=== PATIENT | female | born 1995 | race American Indian/Alaskan Native ===

== ENCOUNTER 2019-06-20 05:52 | Observation (INO) | payer SELFPAY ==
--- NOTE | 2019-06-20 05:57 | EDM.PDOCBH ---
ED HPI GENERAL MEDICAL PROBLEM - General Chief Complaint: Drug or Alcohol Abuse Stated Complaint: EMS ARRIVAL Time Seen by Provider: 06/20/19 05:53 Source of Information: Reports: Patient, EMS History Limitations: Reports: Intoxication - History of Present Illness INITIAL COMMENTS - FREE TEXT/NARRATIVE: CC overdose HPI: This is a floridly intoxicated female who 45 minutes ago took an unknown number of ibuprofen 600s and approximately 10 Tylenol PMs in addition to copious alcohol in an attempt to kill herself. PMHX/PSHX: Pression Social History: Negative for tobacco, positive for alcohol, negative for street drugs or marijuana Family history: Hypertension ROS: see chart PE: Floridly intoxicated uncooperative patient VS afebrile vital signs stable General: No apparent distress Head: Atraumatic normocephalic no lumps bumps or bruises Eyes: EOMI PERRLA Ears: TMs intact no hemotympanum no signs of infection no mastoid tenderness Nose: No epistaxis nares patent no septal wall hematoma Throat: No pharyngeal erythema or exudate no tonsillar enlargement Neck: Supple, no cervical lymphadenopathy Chest wall: No point tenderness Heart: Regular rate and rhythm without murmur gallop or rub Lungs: Clear to auscultation and percussion without rales rhonchi or wheeze Abdomen: Soft nontender nondistended without guarding rigidity or rebound Neck: No spinal point tenderness full range of motion in all 6 directions Back: No spinal paraspinal or CVA tenderness Extremities: full rom through out. no effusions skin: Warm dry intact no rashes neurologic: . No focal motor or sensory deficits noted Psychiatric: patient denies suicidal intent MDM: Differential diagnosis: ED course: Diagnosis: Disposition: COURSE, BEHAVIORAL HEALTH COMP - Course Orders, Labs, Meds: Active Orders 24 hr Category Date Time Status EKG Documentation Completion [RC] STAT Care 06/20/19 05:54 Active ACETAMINOPHEN [CHEM] Stat Lab 06/20/19 05:54 Ordered CBC WITH AUTO DIFF [HEME] Stat Lab 06/20/19 05:54 Ordered COMPREHENSIVE METABOLIC PN,CMP [CHEM] Stat Lab 06/20/19 05:54 Ordered DRUG SCREEN, URINE [URCHEM] Stat Lab 06/20/19 05:54 Ordered ETHANOL BLOOD MEDICAL [CHEM] Stat Lab 06/20/19 05:54 Ordered Preg Urine [HCG QUALITATIVE,URINE] [URCHEM] Stat Lab 06/20/19 05:54 Ordered SALICYLATE [CHEM] Stat Lab 06/20/19 05:54 Ordered UA W/SIXTO RFLX IF INDICATED [URIN] Stat Lab 06/20/19 05:54 Ordered Departure - Discharge Information Forms: ED Department Discharge - My Orders Last 24 Hours: My Active Orders 06/20/19 05:54 EKG Documentation Completion [RC] STAT ACETAMINOPHEN [CHEM] Stat CBC WITH AUTO DIFF [HEME] Stat COMPREHENSIVE METABOLIC PN,CMP [CHEM] Stat DRUG SCREEN, URINE [URCHEM] Stat ETHANOL BLOOD MEDICAL [CHEM] Stat Preg Urine [HCG QUALITATIVE,URINE] [URCHEM] Stat SALICYLATE [CHEM] Stat UA W/SIXTO RFLX IF INDICATED [URIN] Stat - Assessment/Plan Last 24 Hours: My Active Orders 06/20/19 05:54 EKG Documentation Completion [RC] STAT ACETAMINOPHEN [CHEM] Stat CBC WITH AUTO DIFF [HEME] Stat COMPREHENSIVE METABOLIC PN,CMP [CHEM] Stat DRUG SCREEN, URINE [URCHEM] Stat ETHANOL BLOOD MEDICAL [CHEM] Stat Preg Urine [HCG QUALITATIVE,URINE] [URCHEM] Stat SALICYLATE [CHEM] Stat UA W/SIXTO RFLX IF INDICATED [URIN] Stat
[2019-06-20] MEDS ORDERED: Sodium Chloride 0.9% 1,000 ML IV ONE ×2 (06:13→07:37)
[2019-06-20] MEDS ORDERED: Sodium Chloride 0.9% 10 ML Syringe FLUSH PRN (06:14)
[2019-06-20] MEDS ORDERED: Sodium Chloride 0.9% 2.5 ML Syringe FLUSH PRN (06:14)
[2019-06-20 06:43] LABS: ACETAMINOPHEN <2.0 ug/mL; BLOOD UREA NITROGEN,BUN 8 mg/dL (7.0-18.0); CARBON DIOXIDE,CO2 23.7 mmol/L (21.0-32.0); CHLORIDE,CL 105 mmol/L (98-107); GLUCOSE RANDOM 95 mg/dL (74-106); POTASSIUM,K 3.7 mmol/L (3.5-5.1); SODIUM,NA 143 mmol/L (136-145)
--- NOTE | 2019-06-20 07:21 | EDM.PDOC ---
ED HPI GENERAL MEDICAL PROBLEM - General Chief Complaint: Drug or Alcohol Abuse Stated Complaint: EMS ARRIVAL Time Seen by Provider: 06/20/19 05:53 Source of Information: Reports: RN, RN Notes Reviewed History Limitations: Reports: Intoxication (Reportedly took 30 600 mg ibuprofen tabs and ten tylenol pm tabs per EMS report. Pt says, "No" or "1996" when asked questions. Unable to provide additional hx.) - Related Data Allergies Allergy/AdvReac Type Severity Reaction Status Date / Time No Known Allergies Allergy Verified 06/20/19 06:02 Home Meds: Home Meds Non-Formulary Medication [NF Drug] 1 each PO DAILY 06/20/19 [History] Past Medical History Psychiatric History: Reports: Suicidal Ideation Hematologic History: Reports: Anemia - Infectious Disease History Infectious Disease History: Reports: None Social & Family History - Family History Family Medical History: Noncontributory - Tobacco Use Smoking Status *Q: Current Every Day Smoker Years of Tobacco use: 5 Packs/Tins Daily: 0.5 - Caffeine Use Caffeine Use: Reports: Coffee, Energy Drinks - Recreational Drug Use Recreational Drug Use: No ED ROS GENERAL - Review of Systems Review Of Systems: Unable To Obtain Reason Not Obtained: Pt uncooperative. - Physical Exam Exam: See Below Exam Limited By: Intoxication General Appearance: WD/WN, Other (WDWN, smells of etoh, arouses to stimulation ( cool, wet cloth applied to forehead), attempts to pull sheet over head) Eye Exam: Bilateral Eye: Abnormal Pupil (pinpoint pupils) Ears: Normal External Exam, Hearing Grossly Normal Nose: Normal Inspection, Normal Mucosa, No Blood Throat/Mouth: Normal Inspection, Normal Oropharynx, Normal Voice, No Airway Compromise Head Exam: Atraumatic, Normocephalic Neck: Normal Inspection, Full Range of Motion Respiratory/Chest: No Respiratory Distress, Lungs Clear, Normal Breath Sounds Cardiovascular: Normal Peripheral Pulses (Strong, equal pulses. Tachycardia.), Regular Rate, Rhythm, No Edema, Tachycardia GI/Abdominal: Normal Bowel Sounds, Soft, Non-Tender, No Organomegaly, No Distention (Soft NT NABS) Neuro Exam (Abbreviated): Confused (Moves each extremity. Will not follow commands. EOMI. slabber light 2-12 grossly intact. Good tone.) Course - Vital Signs Text/Narrative:: CBC: Unremarkable CMP #1 CO2 low normal, otherwise unremarkable CMP #2 : CO2 a little low, otherwise unremarkable Liver function tests: AST and ALT normal; total bili normal : Negative Urinalysis: Negative nitrite, trace leukocyte esterase, rare bacteria Urine drug screen: Negative Alcohol level: 287 (elevated) Salicylates: 2.7 (couple) Acetaminophen level 1: Less than 2 Acetaminophen level #2: Less than 2 EKG 1:104 bpm sinus tachycardia normal axis normal TN, QRS, QTc intervals; RSR' pattern in V1 and V2, no acute ST changes EKG #2: 85 bpm sinus rhythm tachycardia normal axis normal TN, QRS, QTc intervals; RSR' pattern in V1 and V2, no acute ST changes Last Recorded V/S: Last Vital Signs Temp 98.7 F 06/20/19 22:00 Pulse 93 06/20/19 22:00 Resp 17 06/20/19 22:00 BP 138/80 06/20/19 22:00 Pulse Ox 96 06/20/19 22:00 - Orders/Labs/Meds Labs: Laboratory Tests 06/20/19 06/20/19 06/20/19 Range/Units 06:00 06:00 06:00 WBC 10.86 (4.0-11.0) K/uL RBC 4.45 (4.30-5.90) M/uL Hgb 14.4 (12.0-16.0) g/dL Hct 41.5 (36.0-46.0) % MCV 93.3 (80.0-98.0) fL MCH 32.4 H (27.0-32.0) pg MCHC 34.7 (31.0-37.0) g/dL RDW Std Deviation 41.0 (28.0-62.0) fl RDW Coeff of Ambrosio 12 (11.0-15.0) % Plt Count 302 (150-400) K/uL MPV 10.50 (7.40-12.00) fL Add Manual Diff YES Neutrophils % (Manual) 37 L (48.0-80.0) % Band Neutrophils % 2 % Lymphocytes % (Manual) 57 H (16.0-40.0) % Monocytes % (Manual) 1 (0.0-15.0) % Eosinophils % (Manual) 3 (0.0-7.0) % Nucleated RBC % 0.0 /100WBC Absolute Seg Neuts 4.0 (1.4-5.7) Band Neutrophils # 0.2 Lymphocytes # (Manual) 6.2 H (0.6-2.4) Monocytes # (Manual) 0.1 (0.0-0.8) Eosinophils # (Manual) 0.3 (0.0-0.7) Nucleated RBCs # 0 K/uL Sodium 143 (136-145) mmol/L Potassium 3.7 (3.5-5.1) mmol/L Chloride 105 (98-107) mmol/L Carbon Dioxide 23.7 (21.0-32.0) mmol/L BUN 8 (7.0-18.0) mg/dL Creatinine 0.7 (0.6-1.0) mg/dL Est Cr Clr Drug Dosing 105.57 mL/min Estimated GFR (MDRD) > 60.0 ml/min Glucose 95 (74-106) mg/dL POC Glucose (60-110) mg/dL Calcium 8.8 (8.5-10.1) mg/dL Magnesium (1.8-2.4) mg/dL Total Bilirubin 0.2 (0.2-1.0) mg/dL AST 21 (15-37) IU/L ALT 22 (14-63) IU/L Alkaline Phosphatase 61 (46-116) U/L Total Protein 8.9 H (6.4-8.2) g/dL Albumin 4.3 (3.4-5.0) g/dL Globulin 4.6 H (2.6-4.0) g/dL Albumin/Globulin Ratio 0.9 (0.9-1.6) TSH 3rd Generation (0.36-3.74) uIU/mL HCG, Qual NEGATIVE (NEG) Urine Color Urine Appearance Urine pH (5.0-8.0) Ur Specific [place] (1.001-1.035) Urine Protein (NEGATIVE) mg/dL Urine Glucose (UA) (NEGATIVE) mg/dL Urine Ketones (NEGATIVE) mg/dL Urine Occult Blood (NEGATIVE) Urine Nitrite (NEGATIVE) Urine Bilirubin (NEGATIVE) Urine Urobilinogen (<2.0) EU/dL Ur Leukocyte Esterase (NEGATIVE) Urine RBC (0-2/HPF) Urine WBC (0-5/HPF) Ur Epithelial Cells (NONE-FEW) Urine Bacteria (NEGATIVE) Urine HCG, Qual (NEGATIVE) Salicylates 2.7 (0-20) mg/dL Urine Opiates Screen (NEGATIVE) Ur Oxycodone Screen (NEGATIVE) Urine Methadone Screen (NEGATIVE) Acetaminophen <2.0 ug/mL Ur Barbiturates Screen (NEGATIVE) Ur Phencyclidine Scrn (NEGATIVE) Ur Amphetamine Screen (NEGATIVE) U Methamphetamines Scrn (NEGATIVE) U Benzodiazepines Scrn (NEGATIVE) U Cocaine Metab Screen (NEGATIVE) U Marijuana (THC) Screen (NEGATIVE) Ethyl Alcohol 287 mg/dL 06/20/19 06/20/19 06/20/19 Range/Units 06:00 06:01 06:25 WBC (4.0-11.0) K/uL RBC (4.30-5.90) M/uL Hgb (12.0-16.0) g/dL Hct (36.0-46.0) % MCV (80.0-98.0) fL MCH (27.0-32.0) pg MCHC (31.0-37.0) g/dL RDW Std Deviation (28.0-62.0) fl RDW Coeff of Ambrosio (11.0-15.0) % Plt Count (150-400) K/uL MPV (7.40-12.00) fL Add Manual Diff Neutrophils % (Manual) (48.0-80.0) % Band Neutrophils % % Lymphocytes % (Manual) (16.0-40.0) % Monocytes % (Manual) (0.0-15.0) % Eosinophils % (Manual) (0.0-7.0) % Nucleated RBC % /100WBC Absolute Seg Neuts (1.4-5.7) Band Neutrophils # Lymphocytes # (Manual) (0.6-2.4) Monocytes # (Manual) (0.0-0.8) Eosinophils # (Manual) (0.0-0.7) Nucleated RBCs # K/uL Sodium (136-145) mmol/L Potassium (3.5-5.1) mmol/L Chloride (98-107) mmol/L Carbon Dioxide (21.0-32.0) mmol/L BUN (7.0-18.0) mg/dL Creatinine (0.6-1.0) mg/dL Est Cr Clr Drug Dosing mL/min Estimated GFR (MDRD) ml/min Glucose (74-106) mg/dL POC Glucose 95 (60-110) mg/dL Calcium (8.5-10.1) mg/dL Magnesium 2.2 (1.8-2.4) mg/dL Total Bilirubin (0.2-1.0) mg/dL AST (15-37) IU/L ALT (14-63) IU/L Alkaline Phosphatase (46-116) U/L Total Protein (6.4-8.2) g/dL Albumin (3.4-5.0) g/dL Globulin (2.6-4.0) g/dL Albumin/Globulin Ratio (0.9-1.6) TSH 3rd Generation 2.96 (0.36-3.74) uIU/mL HCG, Qual (NEG) Urine Color YELLOW Urine Appearance CLEAR Urine pH 6.0 (5.0-8.0) Ur Specific [place] <= 1.005 (1.001-1.035) Urine Protein NEGATIVE (NEGATIVE) mg/dL Urine Glucose (UA) NEGATIVE (NEGATIVE) mg/dL Urine Ketones NEGATIVE (NEGATIVE) mg/dL Urine Occult Blood NEGATIVE (NEGATIVE) Urine Nitrite NEGATIVE (NEGATIVE) Urine Bilirubin NEGATIVE (NEGATIVE) Urine Urobilinogen 0.2 (<2.0) EU/dL Ur Leukocyte Esterase TRACE H (NEGATIVE) Urine RBC 0-1 (0-2/HPF) Urine WBC 0-1 (0-5/HPF) Ur Epithelial Cells RARE (NONE-FEW) Urine Bacteria RARE (NEGATIVE) Urine HCG, Qual (NEGATIVE) Salicylates (0-20) mg/dL Urine Opiates Screen (NEGATIVE) Ur Oxycodone Screen (NEGATIVE) Urine Methadone Screen (NEGATIVE) Acetaminophen ug/mL Ur Barbiturates Screen (NEGATIVE) Ur Phencyclidine Scrn (NEGATIVE) Ur Amphetamine Screen (NEGATIVE) U Methamphetamines Scrn (NEGATIVE) U Benzodiazepines Scrn (NEGATIVE) U Cocaine Metab Screen (NEGATIVE) U Marijuana (THC) Screen (NEGATIVE) Ethyl Alcohol mg/dL 06/20/19 06/20/19 06/20/19 Range/Units 06:25 06:25 09:03 WBC (4.0-11.0) K/uL RBC (4.30-5.90) M/uL Hgb (12.0-16.0) g/dL Hct (36.0-46.0) % MCV (80.0-98.0) fL MCH (27.0-32.0) pg MCHC (31.0-37.0) g/dL RDW Std Deviation (28.0-62.0) fl RDW Coeff of Ambrosio (11.0-15.0) % Plt Count (150-400) K/uL MPV (7.40-12.00) fL Add Manual Diff Neutrophils % (Manual) (48.0-80.0) % Band Neutrophils % % Lymphocytes % (Manual) (16.0-40.0) % Monocytes % (Manual) (0.0-15.0) % Eosinophils % (Manual) (0.0-7.0) % Nucleated RBC % /100WBC Absolute Seg Neuts (1.4-5.7) Band Neutrophils # Lymphocytes # (Manual) (0.6-2.4) Monocytes # (Manual) (0.0-0.8) Eosinophils # (Manual) (0.0-0.7) Nucleated RBCs # K/uL Sodium 146 H (136-145) mmol/L Potassium 4.0 (3.5-5.1) mmol/L Chloride 112 H (98-107) mmol/L Carbon Dioxide 20.7 L (21.0-32.0) mmol/L BUN 8 (7.0-18.0) mg/dL Creatinine 0.6 (0.6-1.0) mg/dL Est Cr Clr Drug Dosing 123.16 mL/min Estimated GFR (MDRD) > 60.0 ml/min Glucose 86 (74-106) mg/dL POC Glucose (60-110) mg/dL Calcium 7.3 L (8.5-10.1) mg/dL Magnesium (1.8-2.4) mg/dL Total Bilirubin (0.2-1.0) mg/dL AST (15-37) IU/L ALT (14-63) IU/L Alkaline Phosphatase (46-116) U/L Total Protein (6.4-8.2) g/dL Albumin (3.4-5.0) g/dL Globulin (2.6-4.0) g/dL Albumin/Globulin Ratio (0.9-1.6) TSH 3rd Generation (0.36-3.74) uIU/mL HCG, Qual (NEG) Urine Color Urine Appearance Urine pH (5.0-8.0) Ur Specific [place] (1.001-1.035) Urine Protein (NEGATIVE) mg/dL Urine Glucose (UA) (NEGATIVE) mg/dL Urine Ketones (NEGATIVE) mg/dL Urine Occult Blood (NEGATIVE) Urine Nitrite (NEGATIVE) Urine Bilirubin (NEGATIVE) Urine Urobilinogen (<2.0) EU/dL Ur Leukocyte Esterase (NEGATIVE) Urine RBC (0-2/HPF) Urine WBC (0-5/HPF) Ur Epithelial Cells (NONE-FEW) Urine Bacteria (NEGATIVE) Urine HCG, Qual NEGATIVE (NEGATIVE) Salicylates (0-20) mg/dL Urine Opiates Screen NEGATIVE (NEGATIVE) Ur Oxycodone Screen NEGATIVE (NEGATIVE) Urine Methadone Screen NEGATIVE (NEGATIVE) Acetaminophen <2.0 ug/mL Ur Barbiturates Screen NEGATIVE (NEGATIVE) Ur Phencyclidine Scrn NEGATIVE (NEGATIVE) Ur Amphetamine Screen NEGATIVE (NEGATIVE) U Methamphetamines Scrn NEGATIVE (NEGATIVE) U Benzodiazepines Scrn NEGATIVE (NEGATIVE) U Cocaine Metab Screen NEGATIVE (NEGATIVE) U Marijuana (THC) Screen NEGATIVE (NEGATIVE) Ethyl Alcohol mg/dL CBC: Unremarkable Chemistry #1 glucose normal at 95; CO2 23.7( low nl), otherwise unremarkable Chemistry #2 1 glucose normal at 86; CO2 20.7( low ), otherwise unremarkable Urinalysis: Negative glucose, negative nitrite, trace leukocyte esterase, rare bacteria Urine hCG: Negative Salicylates: 2.7 (unremarkable) Urine drug screen: Negative EtOH: Elevated at 287 Acetaminophen initial level: Negative repeat acetamin: neg Meds: Medications Discontinued Medications Generic Name Dose Route Start Last Admin Trade Name Niko PRN Reason Stop Dose Admin Enoxaparin Sodium 40 mg 06/20/19 12:30 06/20/19 14:48 Lovenox SUBCUT 40 mg Q24H HENRY Administration Sodium Chloride 1,000 mls @ 999 mls/hr 06/20/19 06:13 06/20/19 06:17 Normal Saline IV 06/20/19 07:13 999 mls/hr .Bolus ONE Administration Sodium Chloride 1,000 mls @ 999 mls/hr 06/20/19 07:37 06/20/19 07:43 Normal Saline IV 06/20/19 08:37 999 mls/hr .BOLUS ONE Administration Lactated Ringer's 1,000 mls @ 999 mls/hr 06/20/19 12:22 06/20/19 14:09 Ringers, Lactated IV 06/20/19 13:22 Not Given BOLUS ONE Lactated Ringer's 1,000 mls @ 200 mls/hr 06/20/19 14:10 06/20/19 14:49 Ringers, Lactated IV 06/20/19 19:09 200 mls/hr ONETIME ONE Administration Lorazepam 0 mg 06/20/19 12:34 Ativan IVPUSH Q4H PRN Withdrawal Symptoms Protocol Multivit/Ca Carb/B Cmplx/FA/Prenat 1 cap 06/20/19 12:45 06/20/19 14:50 Renal Caps Softgel PO 1 cap DAILY HENRY Administration Ondansetron HCl 4 mg 06/20/19 11:51 06/20/19 14:47 Zofran IVPUSH 06/20/19 11:52 Not Given ONETIME ONE Ondansetron HCl 4 mg 06/20/19 12:22 Zofran Odt PO Q4H PRN nausea, able to take PO Ondansetron HCl 4 mg 06/20/19 12:22 Zofran IVPUSH Q4H PRN Nausea Sodium Chloride 10 ml 06/20/19 06:14 Saline Flush FLUSH ASDIRECTED PRN Keep Vein Open Sodium Chloride 2.5 ml 06/20/19 06:14 Saline Flush FLUSH ASDIRECTED PRN Keep Vein Open - Radiology Interpretation Free Text/Narrative:: CXR: no acute infiltrate - Re-Assessments/Exams Free Text/Narrative Re-Assessment/Exam: 06/20/19 07:49 SBP fell to 88. Liter bolus started. 06/20/19 10:23 Patient is now awake and talking. She said last night, she was drinking in a bar. She said she was angry with her boyfriend and that she really did want to . She does endorse taking Tylenol and Motrin. She claimed that she just wanted to sleep but also said that she did wish she were . She denies suicidal ideation at this moment. She does admit that she is previously attempted suicide before; for example, states that she tried slitting her wrists when she was in high school. It is making reasonably decent eye contact. Affect at times is silly. She seems evasive at times. I have concern that the patient would do something impulsive and harm herself if she were to be discharged. She has been moved to 1 of the psych beds where she is in close observation by nursing, and plan is to transfer her. There are no psych beds at my not. There are no beds at [facility], either. [facility] is the next facility to be tried. Departure - Departure Time of Disposition: 12:01 (accepted by Nba Quiles(resident) for Dr. Juarez ( attending 12:01pm)) Disposition: Admitted As Inpatient 65 Clinical Impression: Suicidal intent, Alcohol abuse - Discharge Information Sepsis Event Note - Evaluation Sepsis Screening Result: No Definite Risk - Focused Exam Date Exam was Performed: 06/23/19 Time Exam was Performed: 07:34
--- NOTE | 2019-06-20 08:47 | CR ---
Chest: Portable view of the chest was obtained. Comparison: No prior chest imaging is available. Heart size and mediastinum are normal. Lungs are clear. Bony structures are unremarkable. Impression: 1. Nothing acute is seen on portable chest x-ray. Diagnostic code #1 This report was dictated in [place] Standard Time
[2019-06-20 09:26] LABS: ACETAMINOPHEN <2.0 ug/mL; BLOOD UREA NITROGEN,BUN 8 mg/dL (7.0-18.0); CARBON DIOXIDE,CO2 20.7 mmol/L (21.0-32.0); CHLORIDE,CL 112 mmol/L (98-107); GLUCOSE RANDOM 86 mg/dL (74-106); SODIUM,NA 146 mmol/L (136-145)
[2019-06-20] MEDS ORDERED: Ondansetron 4 MG/2 ML SDV IVPUSH ONE (11:51)
[2019-06-20] MEDS ORDERED: Ondansetron 4 MG/2 ML SDV IVPUSH PRN (12:22)
[2019-06-20] MEDS ORDERED: Ondansetron 4 MG Tab.DIS PO PRN (12:22)
[2019-06-20] MEDS ORDERED: Lactated Ringers 1,000 ML IV ONE ×2 (12:22→14:10)
[2019-06-20] MEDS ORDERED: Enoxaparin 40 MG/0.4 ML Syringe SUBCUT SCH (12:30)
[2019-06-20] MEDS ORDERED: LORazepam 2 MG/ML SDV IVPUSH PRN (12:34)
[2019-06-20] MEDS ORDERED: Folic Acid/Vitamin B Complex With C Cap PO SCH (12:45)
--- NOTE | 2019-06-20 14:03 | PCM.HP.2 ---
<Shadi Knight - Last Filed: 06/20/19 17:40> H&P History of Present Illness - General Date of Service: 06/20/19 Admit Problem/Dx: Admission Diagnosis/Problem Admission Diagnosis/Problem Alcohol intoxication - History of Present Illness Initial Comments - Free Text/Narative: 24 y/o female with history of depression who presented to the ER after she apparently ingested half a bottle of tylenol and ibuprofen. She states that she was drinking last night with family about 6 shots and beer. Went home and she started having suicidal thoughts. She states she "wanted to fall asleep forever " and that's why she took the tylenol and ibuprofen. She has had previous suicidal thoughts and attempts with cutting her left wrist multiple times. States last time was about 1 year ago. Has not been taking any antidepressant medication for years now. Denies ingesting any other substances. She smokes cigarettes and drinks on a regular basis. No IV drug use. In the ER, she received 2 L NS. Acetaminophen levels <2.0 approximately 8 hours after ingestion at approximately 4 am. Alcohol level of 287. Salicylate level 2.7. She is accompanied by her older sister who is at bedside. Patient is alert and oriented to person, place, time and situation. States she feels better now. No vomiting, abdominal pain, diarrhea, dysuria. States she still feels like "falling asleep forever". ER tried contacting local psychiatric units but no space available. No transportation available until later tonight. - Related Data Allergies/Adverse Reactions: Allergies Allergy/AdvReac Type Severity Reaction Status Date / Time No Known Allergies Allergy Verified 06/20/19 06:02 Home Medications: Home Meds Non-Formulary Medication [NF Drug] 1 each PO DAILY 06/20/19 [History] Past Medical History Psychiatric History: Reports: Suicidal Ideation Hematologic History: Reports: Anemia - Infectious Disease History Infectious Disease History: Reports: None Social & Family History - Family History Family Medical History: Noncontributory - Tobacco Use Smoking Status *Q: Current Every Day Smoker Years of Tobacco use: 5 Packs/Tins Daily: 0.5 - Caffeine Use Caffeine Use: Reports: Coffee, Energy Drinks - Recreational Drug Use Recreational Drug Use: No H&P Review of Systems - Review of Systems: Review Of Systems: Comprehensive ROS is negative, except as noted in HPI. Exam - Exam Exam: See Below - Vital Signs Vital Signs: Last Vital Signs Temp 36.4 C 06/20/19 13:57 Pulse 94 06/20/19 13:57 Resp 16 06/20/19 13:57 BP 115/72 06/20/19 13:57 Pulse Ox 96 06/20/19 13:57 Weight: 54.431 kg - Exam General: Alert, Oriented, Cooperative HEENT: Mucosa Moist & [place] Lungs: Clear to Auscultation, Normal Respiratory Effort, Wheezing. No: Crackles Cardiovascular: Regular Rate, Regular Rhythm GI/Abdominal Exam: Normal Bowel Sounds, Soft, Non-Tender, No Distention. No: Guarding, Rebound Extremities: Normal Inspection, No Pedal Edema Skin: Warm, Moist Neuro Extensive - Mental Status: Alert, Oriented x3 - Patient Data Lab Results Last 24 hrs: Laboratory Results - last 24 hr 06/20/19 06/20/19 06/20/19 Range/Units 06:00 06:00 06:00 WBC 10.86 (4.0-11.0) K/uL RBC 4.45 (4.30-5.90) M/uL Hgb 14.4 (12.0-16.0) g/dL Hct 41.5 (36.0-46.0) % MCV 93.3 (80.0-98.0) fL MCH 32.4 H (27.0-32.0) pg MCHC 34.7 (31.0-37.0) g/dL RDW Std Deviation 41.0 (28.0-62.0) fl RDW Coeff of Ambrosio 12 (11.0-15.0) % Plt Count 302 (150-400) K/uL MPV 10.50 (7.40-12.00) fL Add Manual Diff YES Neutrophils % (Manual) 37 L (48.0-80.0) % Band Neutrophils % 2 % Lymphocytes % (Manual) 57 H (16.0-40.0) % Monocytes % (Manual) 1 (0.0-15.0) % Eosinophils % (Manual) 3 (0.0-7.0) % Nucleated RBC % 0.0 /100WBC Absolute Seg Neuts 4.0 (1.4-5.7) Band Neutrophils # 0.2 Lymphocytes # (Manual) 6.2 H (0.6-2.4) Monocytes # (Manual) 0.1 (0.0-0.8) Eosinophils # (Manual) 0.3 (0.0-0.7) Nucleated RBCs # 0 K/uL Sodium 143 (136-145) mmol/L Potassium 3.7 (3.5-5.1) mmol/L Chloride 105 (98-107) mmol/L Carbon Dioxide 23.7 (21.0-32.0) mmol/L BUN 8 (7.0-18.0) mg/dL Creatinine 0.7 (0.6-1.0) mg/dL Est Cr Clr Drug Dosing 105.57 mL/min Estimated GFR (MDRD) > 60.0 ml/min Glucose 95 (74-106) mg/dL POC Glucose (60-110) mg/dL Calcium 8.8 (8.5-10.1) mg/dL Magnesium (1.8-2.4) mg/dL Total Bilirubin 0.2 (0.2-1.0) mg/dL AST 21 (15-37) IU/L ALT 22 (14-63) IU/L Alkaline Phosphatase 61 (46-116) U/L Total Protein 8.9 H (6.4-8.2) g/dL Albumin 4.3 (3.4-5.0) g/dL Globulin 4.6 H (2.6-4.0) g/dL Albumin/Globulin Ratio 0.9 (0.9-1.6) TSH 3rd Generation (0.36-3.74) uIU/mL HCG, Qual NEGATIVE (NEG) Urine Color Urine Appearance Urine pH (5.0-8.0) Ur Specific [place] (1.001-1.035) Urine Protein (NEGATIVE) mg/dL Urine Glucose (UA) (NEGATIVE) mg/dL Urine Ketones (NEGATIVE) mg/dL Urine Occult Blood (NEGATIVE) Urine Nitrite (NEGATIVE) Urine Bilirubin (NEGATIVE) Urine Urobilinogen (<2.0) EU/dL Ur Leukocyte Esterase (NEGATIVE) Urine RBC (0-2/HPF) Urine WBC (0-5/HPF) Ur Epithelial Cells (NONE-FEW) Urine Bacteria (NEGATIVE) Urine HCG, Qual (NEGATIVE) Salicylates 2.7 (0-20) mg/dL Urine Opiates Screen (NEGATIVE) Ur Oxycodone Screen (NEGATIVE) Urine Methadone Screen (NEGATIVE) Acetaminophen <2.0 ug/mL Ur Barbiturates Screen (NEGATIVE) Ur Phencyclidine Scrn (NEGATIVE) Ur Amphetamine Screen (NEGATIVE) U Methamphetamines Scrn (NEGATIVE) U Benzodiazepines Scrn (NEGATIVE) U Cocaine Metab Screen (NEGATIVE) U Marijuana (THC) Screen (NEGATIVE) Ethyl Alcohol 287 mg/dL 06/20/19 06/20/19 06/20/19 Range/Units 06:00 06:01 06:25 WBC (4.0-11.0) K/uL RBC (4.30-5.90) M/uL Hgb (12.0-16.0) g/dL Hct (36.0-46.0) % MCV (80.0-98.0) fL MCH (27.0-32.0) pg MCHC (31.0-37.0) g/dL RDW Std Deviation (28.0-62.0) fl RDW Coeff of Ambrosio (11.0-15.0) % Plt Count (150-400) K/uL MPV (7.40-12.00) fL Add Manual Diff Neutrophils % (Manual) (48.0-80.0) % Band Neutrophils % % Lymphocytes % (Manual) (16.0-40.0) % Monocytes % (Manual) (0.0-15.0) % Eosinophils % (Manual) (0.0-7.0) % Nucleated RBC % /100WBC Absolute Seg Neuts (1.4-5.7) Band Neutrophils # Lymphocytes # (Manual) (0.6-2.4) Monocytes # (Manual) (0.0-0.8) Eosinophils # (Manual) (0.0-0.7) Nucleated RBCs # K/uL Sodium (136-145) mmol/L Potassium (3.5-5.1) mmol/L Chloride (98-107) mmol/L Carbon Dioxide (21.0-32.0) mmol/L BUN (7.0-18.0) mg/dL Creatinine (0.6-1.0) mg/dL Est Cr Clr Drug Dosing mL/min Estimated GFR (MDRD) ml/min Glucose (74-106) mg/dL POC Glucose 95 (60-110) mg/dL Calcium (8.5-10.1) mg/dL Magnesium 2.2 (1.8-2.4) mg/dL Total Bilirubin (0.2-1.0) mg/dL AST (15-37) IU/L ALT (14-63) IU/L Alkaline Phosphatase (46-116) U/L Total Protein (6.4-8.2) g/dL Albumin (3.4-5.0) g/dL Globulin (2.6-4.0) g/dL Albumin/Globulin Ratio (0.9-1.6) TSH 3rd Generation 2.96 (0.36-3.74) uIU/mL HCG, Qual (NEG) Urine Color YELLOW Urine Appearance CLEAR Urine pH 6.0 (5.0-8.0) Ur Specific [place] <= 1.005 (1.001-1.035) Urine Protein NEGATIVE (NEGATIVE) mg/dL Urine Glucose (UA) NEGATIVE (NEGATIVE) mg/dL Urine Ketones NEGATIVE (NEGATIVE) mg/dL Urine Occult Blood NEGATIVE (NEGATIVE) Urine Nitrite NEGATIVE (NEGATIVE) Urine Bilirubin NEGATIVE (NEGATIVE) Urine Urobilinogen 0.2 (<2.0) EU/dL Ur Leukocyte Esterase TRACE H (NEGATIVE) Urine RBC 0-1 (0-2/HPF) Urine WBC 0-1 (0-5/HPF) Ur Epithelial Cells RARE (NONE-FEW) Urine Bacteria RARE (NEGATIVE) Urine HCG, Qual (NEGATIVE) Salicylates (0-20) mg/dL Urine Opiates Screen (NEGATIVE) Ur Oxycodone Screen (NEGATIVE) Urine Methadone Screen (NEGATIVE) Acetaminophen ug/mL Ur Barbiturates Screen (NEGATIVE) Ur Phencyclidine Scrn (NEGATIVE) Ur Amphetamine Screen (NEGATIVE) U Methamphetamines Scrn (NEGATIVE) U Benzodiazepines Scrn (NEGATIVE) U Cocaine Metab Screen (NEGATIVE) U Marijuana (THC) Screen (NEGATIVE) Ethyl Alcohol mg/dL 06/20/19 06/20/19 06/20/19 Range/Units 06:25 06:25 09:03 WBC (4.0-11.0) K/uL RBC (4.30-5.90) M/uL Hgb (12.0-16.0) g/dL Hct (36.0-46.0) % MCV (80.0-98.0) fL MCH (27.0-32.0) pg MCHC (31.0-37.0) g/dL RDW Std Deviation (28.0-62.0) fl RDW Coeff of Ambrosio (11.0-15.0) % Plt Count (150-400) K/uL MPV (7.40-12.00) fL Add Manual Diff Neutrophils % (Manual) (48.0-80.0) % Band Neutrophils % % Lymphocytes % (Manual) (16.0-40.0) % Monocytes % (Manual) (0.0-15.0) % Eosinophils % (Manual) (0.0-7.0) % Nucleated RBC % /100WBC Absolute Seg Neuts (1.4-5.7) Band Neutrophils # Lymphocytes # (Manual) (0.6-2.4) Monocytes # (Manual) (0.0-0.8) Eosinophils # (Manual) (0.0-0.7) Nucleated RBCs # K/uL Sodium 146 H (136-145) mmol/L Potassium 4.0 (3.5-5.1) mmol/L Chloride 112 H (98-107) mmol/L Carbon Dioxide 20.7 L (21.0-32.0) mmol/L BUN 8 (7.0-18.0) mg/dL Creatinine 0.6 (0.6-1.0) mg/dL Est Cr Clr Drug Dosing 123.16 mL/min Estimated GFR (MDRD) > 60.0 ml/min Glucose 86 (74-106) mg/dL POC Glucose (60-110) mg/dL Calcium 7.3 L (8.5-10.1) mg/dL Magnesium (1.8-2.4) mg/dL Total Bilirubin (0.2-1.0) mg/dL AST (15-37) IU/L ALT (14-63) IU/L Alkaline Phosphatase (46-116) U/L Total Protein (6.4-8.2) g/dL Albumin (3.4-5.0) g/dL Globulin (2.6-4.0) g/dL Albumin/Globulin Ratio (0.9-1.6) TSH 3rd Generation (0.36-3.74) uIU/mL HCG, Qual (NEG) Urine Color Urine Appearance Urine pH (5.0-8.0) Ur Specific [place] (1.001-1.035) Urine Protein (NEGATIVE) mg/dL Urine Glucose (UA) (NEGATIVE) mg/dL Urine Ketones (NEGATIVE) mg/dL Urine Occult Blood (NEGATIVE) Urine Nitrite (NEGATIVE) Urine Bilirubin (NEGATIVE) Urine Urobilinogen (<2.0) EU/dL Ur Leukocyte Esterase (NEGATIVE) Urine RBC (0-2/HPF) Urine WBC (0-5/HPF) Ur Epithelial Cells (NONE-FEW) Urine Bacteria (NEGATIVE) Urine HCG, Qual NEGATIVE (NEGATIVE) Salicylates (0-20) mg/dL Urine Opiates Screen NEGATIVE (NEGATIVE) Ur Oxycodone Screen NEGATIVE (NEGATIVE) Urine Methadone Screen NEGATIVE (NEGATIVE) Acetaminophen <2.0 ug/mL Ur Barbiturates Screen NEGATIVE (NEGATIVE) Ur Phencyclidine Scrn NEGATIVE (NEGATIVE) Ur Amphetamine Screen NEGATIVE (NEGATIVE) U Methamphetamines Scrn NEGATIVE (NEGATIVE) U Benzodiazepines Scrn NEGATIVE (NEGATIVE) U Cocaine Metab Screen NEGATIVE (NEGATIVE) U Marijuana (THC) Screen NEGATIVE (NEGATIVE) Ethyl Alcohol mg/dL Result Diagrams: 06/20/19 06:00 06/20/19 09:03 Sepsis Event Note - Evaluation Sepsis Screening Result: No Definite Risk - Focused Exam Vital Signs: Vital Signs Temp Pulse Resp BP BP Pulse Ox 06/20/19 13:57 36.4 C 94 16 115/72 96 06/20/19 11:05 36.6 C 99 18 108/65 97 06/20/19 09:58 36.8 C 104 H 109/49 L 98 06/20/19 08:48 81 102/55 L 06/20/19 08:05 99 20 138/95 H 97 06/20/19 07:35 96 88/46 L 06/20/19 06:51 81 17 122/58 L 96 06/20/19 06:03 36.2 C 119 H 17 135/87 98 Date Exam was Performed: 06/20/19 Time Exam was Performed: 17:40 Problem List Initiated/Reviewed/Updated: Yes Orders Last 24hrs: Active Orders 24 hr Category Date Time Status Patient Status [ADT] Routine ADT 06/20/19 12:22 Active CIWAA Assessment [RC] Q4H Care 06/20/19 12:35 Active Communication Order [RC] PER UNIT ROUTINE Care 06/20/19 12:25 Active EKG Documentation Completion [RC] STAT Care 06/20/19 05:54 Active EKG Documentation Completion [RC] STAT Care 06/20/19 07:16 Active Intake and Output [RC] QSHIFT Care 06/20/19 12:23 Active Oxygen Therapy [RC] PRN Care 06/20/19 12:22 Active Up ad Sarah [RC] ASDIRECTED Care 06/20/19 12:22 Active VTE/DVT Education [RC] PER UNIT ROUTINE Care 06/20/19 12:22 Active Vital Signs [RC] Q4H Care 06/20/19 12:22 Active Regular Diet [DIET] Diet 06/20/19 Lunch Active ACETAMINOPHEN [CHEM] Routine Lab 06/20/19 14:00 Ordered CBC WITH AUTO DIFF [HEME] AM Lab 06/21/19 05:11 Ordered COMPREHENSIVE METABOLIC PN,CMP [CHEM] AM Lab 06/21/19 05:11 Ordered INR,PT,PROTHROMBIN TIME [COAG] AM Lab 06/21/19 05:11 Ordered INR,PT,PROTHROMBIN TIME [COAG] Routine Lab 06/20/19 14:02 Ordered Enoxaparin [Lovenox] Med 06/20/19 12:30 Active 40 mg SUBCUT Q24H Folic Acid/Vitamin B Comp W-C [Renal Caps Softgel] Med 06/20/19 12:45 Active 1 cap PO DAILY LORazepam [Ativan] Med 06/20/19 12:34 Active See Protocol IVPUSH Q4H PRN Ondansetron [Zofran ODT] Med 06/20/19 12:22 Active 4 mg PO Q4H PRN Ondansetron [Zofran] Med 06/20/19 12:22 Active 4 mg IVPUSH Q4H PRN Sodium Chloride 0.9% [Saline Flush] Med 06/20/19 06:14 Active 10 ml FLUSH ASDIRECTED PRN Sodium Chloride 0.9% [Saline Flush] Med 06/20/19 06:14 Active 2.5 ml FLUSH ASDIRECTED PRN Saline Lock Insert [OM.PC] Stat Oth 06/20/19 06:14 Ordered Resuscitation Status Routine Resus Stat 06/20/19 12:22 Ordered Medication Orders Enoxaparin Sodium (Lovenox) 40 mg SUBCUT Q24H HENRY Lorazepam (Ativan) 0 mg IVPUSH Q4H PRN; Protocol PRN Reason: Withdrawal Symptoms Multivit/Ca Carb/B Cmplx/FA/Prenat (Renal Caps Softgel) 1 cap PO DAILY HENRY Ondansetron HCl (Zofran Odt) 4 mg PO Q4H PRN PRN Reason: nausea, able to take PO Ondansetron HCl (Zofran) 4 mg IVPUSH Q4H PRN PRN Reason: Nausea Sodium Chloride (Saline Flush) 10 ml FLUSH ASDIRECTED PRN PRN Reason: Keep Vein Open Sodium Chloride (Saline Flush) 2.5 ml FLUSH ASDIRECTED PRN PRN Reason: Keep Vein Open Assessment/Plan Comment:: A: 1. Suicidal ideation with attempt 2. Acetaminophen overdose 3. Alcohol intoxication 4. PMH depression P: 1. Patient will be admitted since no transportation available at this moment. Plan is for her to be transported to [facility] later tonight around 10 pm. Will be on suicide precautions. Sitter in room. Will hydrate her and CIWA assessment with ativan PRN for withdrawals. Acetaminophen levels have remained < 2.0 after 8 hours after initial ingestion. Will repeat again later this evening. Will monitor INR and liver enzymes. Dispo: transfer later tonight when transportation is available <Kyaw Bonilla - Last Filed: 06/27/19 12:27> H&P History of Present Illness - General Admit Problem/Dx: Admission Diagnosis/Problem Admission Diagnosis/Problem Alcohol intoxication Exam - Vital Signs Vital Signs: Last Vital Signs Temp 37.1 C 06/20/19 22:00 Pulse 93 06/20/19 22:00 Resp 17 06/20/19 22:00 BP 138/80 06/20/19 22:00 Pulse Ox 96 06/20/19 22:00 - Patient Data Result Diagrams: 06/20/19 06:00 06/20/19 09:03 Assessment/Plan Comment:: I have seen and evaluated the patient and agree with the residents note unless specified in my note
== END 2019-06-20 22:15 ==
LOC: MW.ED 05:52 → MW.MS 12:22
PROVIDERS: ADMIT Student in an Organized Health Care Education/Training Program; ATTEND Student in an Organized Health Care Education/Training Program
DX: T39.1X2A Poisoning by 4-Aminophenol derivatives, intentional self-harm, initial encounter (principal); T39.312A Poisoning by propionic acid derivatives, intentional self-harm, initial encounter; F32.9 Major depressive disorder, single episode, unspecified; F10.129 Alcohol abuse with intoxication, unspecified; F17.210 Nicotine dependence, cigarettes, uncomplicated; Y90.8 Blood alcohol level of 240 mg/100 ml or more; Y92.009 Unspecified place in unspecified non-institutional (private) residence as the place of occurrence of the external cause; Z91.5 Personal history of self-harm
CPT/HCPCS: 36415; 71045; 80048; 80053; 80305; 80307; 81001; 81025; 82962; 83735; 84443; 84703; 85025; 85610; 93005; A9270; J1650; J7030; J7120; 96360; 96361; 96372; 99283; 99285-25; G0378

== ENCOUNTER 2022-08-26 03:41 | Emergency (ER) | payer SELFPAY ==
[2022-08-26] MEDS ORDERED: Ibuprofen 600 MG Tab PO ONE (04:52)
[2022-08-26 04:55] LABS: ACETAMINOPHEN <2.0 ug/mL; BLOOD UREA NITROGEN,BUN 5 mg/dL (7.0-18.0); CARBON DIOXIDE,CO2 24.5 mmol/L (21.0-32.0); CHLORIDE,CL 104 mmol/L (98-107); GLUCOSE RANDOM 106 mg/dL (74-106); POTASSIUM,K 3.5 mmol/L (3.5-5.1); SODIUM,NA 145 mmol/L (136-145)
[2022-08-26 05:14] LABS: ESTIMATED GFR 121 mL/min (>60)
[2022-08-26] MEDS ORDERED: Ondansetron 4 MG Tab.DIS PO ONE (09:57)
== END 2022-08-26 11:46 | disposition home or self-care (01) ==
LOC: MW.ED 03:41
DX: F32.A Depression, unspecified (principal); Z72.0 Tobacco use; Z20.822 Contact with and (suspected) exposure to COVID-19
CPT/HCPCS: 36415; 80053; 80143; 80179; 80305; 80307; 81001; 83735; 84439; 84443; 84703; 85025; 87635; 93005; 99285; A9270; 99283; U0002

== ENCOUNTER 2023-01-09 21:12 | Emergency (ER) | payer SELFPAY | END 2023-01-09 21:25 | disposition left against medical advice (07) | LOC: MW.ED 21:12 | DX: Z53.21 Procedure and treatment not carried out due to patient leaving prior to being seen by health care provider (principal) ==

== ENCOUNTER 2023-01-10 08:40 | Emergency (ER) | payer SELFPAY ==
[2023-01-10] MEDS ORDERED: Lidocaine 4% 1 each Patch TOP PRN (10:19)
== END 2023-01-10 10:53 | disposition home or self-care (01) ==
LOC: MW.ED 08:40
DX: S20.211A Contusion of right front wall of thorax, initial encounter (principal); F17.210 Nicotine dependence, cigarettes, uncomplicated; W18.40XA Slipping, tripping and stumbling without falling, unspecified, initial encounter; Y93.11 Activity, swimming; Y92.34 Swimming pool (public) as the place of occurrence of the external cause
CPT/HCPCS: 71111; 99283; A9270; 99282

== ENCOUNTER 2023-09-25 23:54 | Emergency (ER) | payer SELFPAY ==
[2023-09-26] MEDS: Acetaminophen 325 MG Tab PO ONE (01:00)
[2023-09-26] MEDS: Ibuprofen 600 MG Tab PO ONE (01:00)
== END 2023-09-26 01:08 | disposition home or self-care (01) ==
LOC: MW.ED 23:54
DX: S09.90XA Unspecified injury of head, initial encounter (principal); T74.11XA Adult physical abuse, confirmed, initial encounter; F10.230 Alcohol dependence with withdrawal, uncomplicated; Z75.8 Other problems related to medical facilities and other health care; Y04.8XXA Assault by other bodily force, initial encounter
CPT/HCPCS: 70450; 72125; 99284; A9270

== ENCOUNTER 2024-07-22 20:59 | Emergency (ER) | payer SELFPAY ==
[2024-07-22] MEDS ORDERED: Sodium Chloride 0.9% 2.5 ML Syringe FLUSH PRN (22:17)
[2024-07-22] MEDS ORDERED: Sodium Chloride 0.9% 10 ML Syringe FLUSH PRN (22:17)
[2024-07-22] MEDS: Ondansetron 4 MG/2 ML SDV IVPUSH PRN (22:21)
[2024-07-22] MEDS: Sodium Chloride 0.9% 1,000 ML IV ONE (22:21)
[2024-07-22 22:24] LABS: HEMOGLOBIN 17.4 g/dL (12.0-16.0); MEAN CORPUSCULAR HEMOGLOBIN 34.5 pg (28.0-32.0); MEAN CORPUSCULAR VOLUME 93.1 fL (83.0-99.0); MEAN PLATELET VOLUME 11.1 fL (9.4-12.3); PLATELET COUNT,PLT 313 K/uL (150-400); RED BLOOD CELL COUNT 5.05 M/uL (4.10-5.30); WHITE BLOOD CELL COUNT,WBC 24.09 K/uL (3.9-11.3)
[2024-07-22 22:36] LABS: CALCIUM 10.8 mg/dL (8.5-10.1); CARBON DIOXIDE,CO2 10.1 mmol/L (21.0-32.0); CREATININE 1.4 mg/dL (0.6-1.0); EST CRCL DRUG DOSING (CG) 48.6 mL/min; MAGNESIUM 1.5 mg/dL (1.8-2.4); POTASSIUM,K 4.1 mmol/L (3.5-5.1)
[2024-07-22 22:46] LABS: BASOPHILS ABSOLUTE MAN 0.24 K/uL (0.00-0.20); BASOPHILS PERCENT MAN 1 % (0-1); LYMPHOCYTES ABSOLUTE MAN 0.48 K/uL (1.00-4.80); LYMPHOCYTES PERCENT MAN 2 % (24-44); MONOCYTES ABSOLUTE MAN 2.17 K/uL (0.00-0.80); MONOCYTES PERCENT MAN 9 % (0-8); SEG NEUTROPHILS PERCENT MAN 88 % (41-71)
[2024-07-23] MEDS: Sodium Chloride 0.9% 1,000 ML IV SCH (00:35)
[2024-07-23] MEDS: Lidocaine 2% Viscous Solution 15 ML UD PO ONE (01:06)
[2024-07-23 01:18] LABS: ALBUMIN 4.4 g/dL (3.4-5.0); BILIRUBIN TOTAL 1.2 mg/dL (0.2-1.0); CALCIUM 9.3 mg/dL (8.5-10.1); CARBON DIOXIDE,CO2 17.4 mmol/L (21.0-32.0); CREATININE 1.1 mg/dL (0.6-1.0); EST CRCL DRUG DOSING (CG) 61.86 mL/min; POTASSIUM,K 4.7 mmol/L (3.5-5.1); PROTEIN TOTAL,TP 8.8 g/dL (6.4-8.2)
[2024-07-23] MEDS ORDERED: Lidocaine 2% Viscous Solution 15 ML UD PO ONE (01:44)
== END 2024-07-23 01:59 | disposition left against medical advice (07) ==
LOC: MW.ED 20:59
DX: R10.13 Epigastric pain (principal); Z79.899 Other long term (current) drug therapy
CPT/HCPCS: 36415; 80048; 80053; 81025; 83735; 85025; 96361; 96374; 99284; A9270; J2405; J7030

== ENCOUNTER 2024-07-23 06:49 | Emergency (ER) | payer SELFPAY ==
[2024-07-23] MEDS ORDERED: Ondansetron 4 MG/2 ML SDV IVPUSH ONE (07:08)
[2024-07-23 07:28] LABS: HEMATOCRIT 43.8 % (37.0-47.0); HEMOGLOBIN 15.8 g/dL (12.0-16.0); MEAN CORPUSCULAR HEMOGLOBIN 33.9 pg (28.0-32.0); MEAN CORPUSCULAR HGB CONC 36.1 g/dL (32.0-36.0); MEAN PLATELET VOLUME 11.3 fL (9.4-12.3); PLATELET COUNT,PLT 273 K/uL (150-400); RED BLOOD CELL COUNT 4.66 M/uL (4.10-5.30); WHITE BLOOD CELL COUNT,WBC 21.07 K/uL (3.9-11.3)
[2024-07-23] MEDS: droPERidol 2.5 MG/ML SDV IVPUSH ONE (07:28)
[2024-07-23] MEDS: Pantoprazole 80 MG in Sodium Chloride 0.9% 10 ML IVPUSH ONE (07:28)
[2024-07-23] MEDS: Sodium Chloride 0.9% 1,000 ML IV ONE (07:28)
[2024-07-23 07:47] LABS: A/G RATIO 1.1 (0.9-1.6); ALBUMIN 4.6 g/dL (3.4-5.0); BILIRUBIN TOTAL 1.2 mg/dL (0.2-1.0); CARBON DIOXIDE,CO2 17.9 mmol/L (21.0-32.0); EST CRCL DRUG DOSING (CG) 68.05 mL/min; POTASSIUM,K 3.8 mmol/L (3.5-5.1)
[2024-07-23 07:54] LABS: INR 1.1 (0.86-1.11)
[2024-07-23] MEDS: Iopamidol 755 MG/ML 500 ML Multipack Bottle IVPUSH STA (08:04)
[2024-07-23 08:53] LABS: BAND ABSOLUTE MAN 0.42; BAND PERCENT MAN 2 %; LYMPHOCYTES ABSOLUTE MAN 2.11 K/uL (1.00-4.80); LYMPHOCYTES PERCENT MAN 10 % (24-44); MONOCYTES ABSOLUTE MAN 1.26 K/uL (0.00-0.80); MONOCYTES PERCENT MAN 6 % (0-8); SEG NEUTROPHILS ABSOLUTE MAN 17.28 K/uL (1.80-7.70); SEG NEUTROPHILS PERCENT MAN 82 % (41-71)
== END 2024-07-23 09:45 | disposition home or self-care (01) ==
LOC: MW.ED 06:49
DX: K21.00 Gastro-esophageal reflux disease with esophagitis, without bleeding (principal); K76.0 Fatty (change of) liver, not elsewhere classified; Z86.59 Personal history of other mental and behavioral disorders
CPT/HCPCS: 36415; 74177; 80053; 83605; 83690; 84703; 85025; 85610; 96361; 96374; 96375; 99284; J1790; J2470; J7030; Q9967

== ENCOUNTER 2024-08-09 15:40 | Emergency (ER) | payer SELFPAY | END 2024-08-09 18:30 | disposition home or self-care (01) | LOC: MW.ED 15:40 | DX: H66.91 Otitis media, unspecified, right ear (principal); Z75.8 Other problems related to medical facilities and other health care; Z79.899 Other long term (current) drug therapy | CPT/HCPCS: 99282 ==

== ENCOUNTER 2024-11-10 07:35 | Emergency (ER) | payer SELFPAY ==
[2024-11-10] MEDS: Ondansetron 4 MG/2 ML SDV IVPUSH ONE (08:30)
[2024-11-10 08:47] LABS: MEAN PLATELET VOLUME 10.9 fL (9.4-12.3); NRBC ABSOLUTE 0.00 K/uL (0.00-0.02); NRBC PERCENT 0.0 /100WBC (0.0-0.2); PLATELET COUNT,PLT 298 K/uL (150-400); WHITE BLOOD CELL COUNT,WBC 19.28 K/uL (3.9-11.3)
[2024-11-10] MEDS: droPERidol 2.5 MG/ML SDV IVPUSH ONE (08:58)
[2024-11-10 09:12] LABS: A/G RATIO 1.0 (0.9-1.6); ALANINE AMINOTRANSFERASE,ALT 104 IU/L (14-63); ASPARTATE AMNIOTRANSFERASE,AST 72 IU/L (15-37); BILIRUBIN TOTAL 1.6 mg/dL (0.2-1.0); BLOOD UREA NITROGEN,BUN 27 mg/dL (7.0-18.0); CARBON DIOXIDE,CO2 19.9 mmol/L (21.0-32.0); CHLORIDE,CL 82 mmol/L (98-107); CREATININE 1.6 mg/dL (0.6-1.0); EST CRCL DRUG DOSING (CG) 42.53 mL/min; ETHANOL BLOOD MEDICAL <3 mg/dL; GLUCOSE RANDOM 138 mg/dL (74-106); POTASSIUM,K 2.5 mmol/L (3.5-5.1); PROTEIN TOTAL,TP 9.6 g/dL (6.4-8.2); SODIUM,NA 130 mmol/L (136-145)
[2024-11-10 09:22] LABS: ESTIMATED GFR 44 mL/min (>60)
[2024-11-10 09:52] LABS: RED BLOOD CELL COUNT 5.45 M/uL (4.10-5.30)
[2024-11-10] MEDS: Diatrizoate Meglumine/Diatrizoate Sodium 37% 30 ML Bottle PO ONE (10:10)
[2024-11-10 10:20] LABS: LYMPHOCYTES ABSOLUTE MAN 3.47 K/uL (1.00-4.80); LYMPHOCYTES PERCENT MAN 18 % (24-44); MONOCYTES ABSOLUTE MAN 1.16 K/uL (0.00-0.80); MONOCYTES PERCENT MAN 6 % (0-8); SEG NEUTROPHILS ABSOLUTE MAN 14.65 K/uL (1.80-7.70); SEG NEUTROPHILS PERCENT MAN 76 % (41-71)
[2024-11-10] MEDS: NS with KCl 40mEq 1,000 ML IV SCH (10:26)
[2024-11-10 10:45] LABS: APPEARANCE,URINE CLOUDY; GLUCOSE,URINE NEGATIVE (NEGATIVE); OCCULT BLOOD,URINE NEGATIVE (NEGATIVE)
[2024-11-10 10:53] LABS: EPITHELIAL CELLS,URINE FEW (NONE-FEW)
[2024-11-10 11:17] LABS: LACTIC ACID 1.0 mmol/L (0.4-2.0)
[2024-11-10] MEDS: LORazepam 2 MG/ML SDV IVPUSH ONE (12:27)
== END 2024-11-10 12:30 ==
LOC: MW.ED 07:35
DX: J98.2 Interstitial emphysema (principal); R11.2 Nausea with vomiting, unspecified; E87.1 Hypo-osmolality and hyponatremia; E87.6 Hypokalemia; Z75.3 Unavailability and inaccessibility of health-care facilities
CPT/HCPCS: 36415; 71250; 74176; 80053; 80307; 81001; 83605; 83690; 84703; 85025; 87040; 87651; 96361; 96365; 96366; 96368; 96375; 99285; J1790; J2060; J2405; J2543; J3480; J7030

== ENCOUNTER 2025-01-12 03:56 | Emergency (ER) | payer MEDICAID | END 2025-01-12 04:25 | LOC: MW.ED 03:56 | DX: S05.11XA Contusion of eyeball and orbital tissues, right eye, initial encounter (principal); W01.198A Fall on same level from slipping, tripping and stumbling with subsequent striking against other object, initial encounter; Y93.89 Activity, other specified | CPT/HCPCS: 99283; A9270 ==